=== PATIENT | female | born 1955 | race Caucasian/White ===

== ENCOUNTER → 2021-03-10 11:58 | Outpatient (CLI) | payer MEDICARE, BC, SELFPAY ==
--- NOTE | ~2021-03-10 | DEXA_ITS ---
Bone Density Report Name: Martha Mccurdy Age: 65 Sex: Female Ethnicity: White Date of : 1955 Indication: osteopenia; height loss; postmenopausal Referring Provider: MCKENNA NAGY Study: Bone densitometry was performed. Exam Date: March 10, 2021 Accession number: [id number] Bone Density: Region BMD T-score Z-score Classification AP Spine (L1-L4) 0.949 -0.9 1.1 Normal Femoral Neck (Left) 0.693 -1.4 0.2 Osteopenia Total Hip (Left) 0.803 -1.1 0.2 Osteopenia Femoral Neck (Right) 0.728 -1.1 0.6 Osteopenia Total Hip (Right) 0.819 -1.0 0.4 Normal Total Hip Mean 0.811 -1.1 0.3 Osteopenia World Health Organization criteria for BMD impression classify patients as: Normal (T-score at or above -1.0), Osteopenia (T-score between -1.0 and -2.5), or Osteoporosis (T-score at or below -2.5). 10-year Fracture Risk(1): Major Osteoporotic Fracture 8.8% Hip Fracture 1.0% Reported Risk Factors: [place] (), Neck BMD=0.693, BMI=32.4 (1) FRAX(R) Version 3.08. Fracture probability calculated for an untreated patient. Fracture probability may be lower if the patient has received treatment. Previous Exams: Region Exam Age BMD T-score BMD Change BMD Change Date g/cm2 vs Baseline vs Previous AP Spine(L1-L4) 03/10/2021 65 0.949 -0.9 -0.141 0.020 09/19/2018 63 0.929 -1.1 -0.161 -0.013 08/02/2015 59 0.942 -1.0 -0.148 -0.002 04/05/2013 57 0.945 -0.9 -0.146 0.049* 10/27/2010 55 0.895 -1.4 -0.195 -0.041* 06/01/2008 52 0.936 -1.0 -0.154 -0.154 06/18/2004 48 1.090 0.4 Total Hip(Left) 03/10/2021 65 0.803 -1.1 -0.097 -0.085 09/19/2018 63 0.888 -0.4 -0.012 -0.018 08/02/2015 59 0.906 -0.3 0.006 0.045* 04/05/2013 57 0.861 -0.7 -0.040 0.008 10/27/2010 55 0.853 -0.7 -0.047 0.010 06/01/2008 52 0.843 -0.8 -0.058 -0.058 06/18/2004 48 0.900 -0.3 Total Hip(Right) 03/10/2021 65 0.819 -1.0 -0.075 -0.059 09/19/2018 63 0.878 -0.5 -0.016 -0.009 08/02/2015 59 0.886 -0.5 -0.007 0.039* 04/05/2013 57 0.847 -0.8 -0.046 -0.017 10/27/2010 55 0.865 -0.6 -0.029 0.043* 06/01/2008 52 0.822 -1.0 -0.072 -0.072 06/18/2004 48 0.893 -0.4 *Denotes significance at 95% confide
--- NOTE | ~2021-03-10 | MM_ITS ---
EXAMINATION: MM screening [facility] BI w liv HISTORY: Screening mammogram TECHNIQUE: Craniocaudal and mediolateral oblique 3-D tomosynthesis images were obtained and synthetic 2-D images were generated. CAD analysis was submitted and interpreted. COMPARISON: 11/08/2019, 09/19/2018, 09/15/2017 BREAST PARENCHYMAL COMPOSITION: There are scattered areas of fibroglandular density. FINDINGS: There is no evidence of suspicious mass, calcification, or architectural distortion to sugg est malignancy in either breast. There has been no suspicious interval change. IMPRESSION: 1. No mammographic evidence of malignancy. 2. Recommend routine screening mammography in one year. BI-RADS Category 1: Negative Reviewed, dictated and finalized at location A.
== END ==
PROVIDERS: Visit Provider Obstetrics & Gynecology Gynecology
DX: Z12.31 Encounter for screening mammogram for malignant neoplasm of breast (principal); Z78.0 Asymptomatic menopausal state; M85.852 Other specified disorders of bone density and structure, left thigh; M85.851 Other specified disorders of bone density and structure, right thigh
CPT/HCPCS: 77063; 77067; 77080

== ENCOUNTER → 2022-08-06 15:09 | Outpatient (CLI) | payer MEDICARE, OTHER, SELFPAY ==
--- NOTE | ~2022-08-06 | MM_ITS ---
EXAMINATION: MM screening [facility] BI w liv HISTORY: Screening mammogram TECHNIQUE: Craniocaudal and mediolateral oblique 3-D tomosynthesis images were obtained and synthetic 2-D images were generated. CAD analysis was submitted and interpreted. COMPARISON: 03/10/2021, 11/08/2019, 09/19/2018 BREAST PARENCHYMAL COMPOSITION: There are scattered areas of fibroglandular density. FINDINGS: No suspicious mass, calcification, or architectural distortion are identified in either rodo ast to suggest malignancy. There has been no suspicious interval change. IMPRESSION: 1. No mammographic evidence of malignancy. 2. Recommend routine screening mammography in one year. BI-RADS Category 1: Negative Reviewed, dictated and finalized at location B.
== END ==
PROVIDERS: PCP Internal Medicine; Visit Provider Obstetrics & Gynecology Gynecology
DX: Z12.31 Encounter for screening mammogram for malignant neoplasm of breast (principal)
CPT/HCPCS: 77063; 77067

== ENCOUNTER 2024-01-14 13:10 | Outpatient (CLI) | payer MEDICARE, OTHER, SELFPAY ==
--- NOTE | ~2024-01-14 | DEXA_ITS ---
Bone Density Report Name: HERIBERTO GARCIA Age: 68 Sex: Female Ethnicity: White Date of : 1955 Indication: osteopenia; height loss; prior fracture; postmenopausal Referring Provider: MCKENNA NAGY Study: Bone densitometry was performed. Exam Date: January 14, 2024 Accession number: [id number] Bone Density: Region BMD T-score Z-score Classification AP Spine (L2, L3, L4) 0.958 -1.1 1.1 Osteopenia Femoral Neck (Left) 0.672 -1.6 0.2 Osteopenia Total Hip (Left) 0.820 -1.0 0.5 Normal Femoral Neck (Right) 0.713 -1.2 0.6 Osteopenia Total Hip (Right) 0.800 -1.2 0.4 Osteopenia Total Hip Mean 0.810 -1.1 0.5 Osteopenia World Health Organization criteria for BMD impression classify patients as: Normal (T-score at or above -1.0), Osteopenia (T-score between -1.0 and -2.5), or Osteoporosis (T-score at or below -2.5). 10-year Fracture Risk(1): Major Osteoporotic Fracture 15% Hip Fracture 2.0% Reported Risk Factors: [place] (), Neck BMD=0.672, BMI=34.7, previous fracture (1) FRAX(R) Version 3.08. Fracture probability calculated for an untreated patient. Fracture probability may be lower if the patient has received treatment. Previous Exams: Region Exam Age BMD T-score BMD Change BMD Change Date g/cm2 vs Baseline vs Previous AP Spine(L2, L3, L4) 01/14/2024 68 0.958 -1.1 -0.134 -0.006 03/10/2021 65 0.964 -1.0 -0.129 0.017 09/19/2018 63 0.946 -1.2 -0.146 -0.027 08/02/2015 59 0.974 -1.0 -0.119 0.019 04/05/2013 57 0.955 -1.1 -0.138 0.050* 10/27/2010 55 0.905 -1.6 -0.188 -0.033* 06/01/2008 52 0.938 -1.3 -0.155 -0.155 06/18/2004 48 1.093 0.1 Total Hip(Left) 01/14/2024 68 0.820 -1.0 -0.080 0.017 03/10/2021 65 0.803 -1.1 -0.097 -0.085 09/19/2018 63 0.888 -0.4 -0.012 -0.018 08/02/2015 59 0.906 -0.3 0.006 0.045* 04/05/2013 57 0.861 -0.7 -0.040 0.008 10/27/2010 55 0.853 -0.7 -0.047 0.010 06/01/2008 52 0.843 -0.8 -0.058 -0.058 06/18/2004 48 0.900 -0.3 Total Hip(Right) 01/14/2024 68 0.800 -1.2 -0.094 -0.019 03/10/2021 65 0.819 -1.0 -0.075 -0.059 09/19/2018 63 0.878 -0.5 -0.016 -0.009 08/02/2015 59 0.886 -0.5 -0.007 0.039* 04/05/2013 57 0.847 -0.8 -0.046 -0.017 10/27/2010 55 0.865 -0.6 -0.029
--- NOTE | ~2024-01-14 | MM_ITS ---
EXAMINATION: MM screening [facility] BI w liv HISTORY: Screening mammogram TECHNIQUE: Craniocaudal and mediolateral oblique 3-D tomosynthesis images were obtained and synthetic 2-D images were generated. CAD analysis was submitted and interpreted. COMPARISON: 08/06/2022, 03/10/2021 bilateral screening mammogram examinations BREAST PARENCHYMAL COMPOSITION: There are scattered areas of fibroglandular density. FINDINGS: Biopsy marker on the right; history of prior benign right breast biopsy. There is no eviden ce of suspicious mass, calcification, or architectural distortion to suggest malignancy in either rodo ast. There has been no suspicious interval change. IMPRESSION: 1. No mammographic evidence of malignancy. 2. Recommend routine screening mammography in one year. BI-RADS Category 1: Negative Reviewed, dictated and finalized at location A.
== END 2024-01-14 13:11 ==
PROVIDERS: PCP Obstetrics & Gynecology Gynecology; Visit Provider Obstetrics & Gynecology Gynecology
DX: Z12.31 Encounter for screening mammogram for malignant neoplasm of breast (principal); M85.89 Other specified disorders of bone density and structure, multiple sites; Z78.0 Asymptomatic menopausal state
CPT/HCPCS: 77063; 77067; 77080

== ENCOUNTER 2024-08-23 07:33 | Outpatient (CLI) | payer MEDICARE, OTHER, SELFPAY ==
--- NOTE | 2024-08-23 | EST_ITS ---
Patient Info Name: Martha Mccurdy Age: 69 years : 1955 Gender: Female Ht: 63 in Wt: 193 lbs BSA: 2.01 m2 HR: 66 bpm BP: 133 / 79 mmHg Exam Date: 08/23/2024 8:30 AM Exam Location: Echo Lab Patient Status: Outpatient Admit Date: 08/23/2024 Staff Ordering Physician: Guanaco, Austin BESS Attending Provider: Guanaco, Austin BESS Exercise Technologist: Damaris Berger [facility] Exercise Physician: Matthew Lao DO Exam Type: CA stress marly w NM Study Info A regadenoson stress test was performed. Summary 1. 1. Negative lexiscan stress test for ischemic ST changes by ECG criteria. 2. 2. Stable hemodynamics throughout the test. 3. 3. Nuclear scan to follow and will be reported separately. Please correlate with it. 4. 4. Patient informed of the above results. Protocol: Lexiscan Stress ECG Details Stage: REST Duration (min): 3 min : 39 sec HR (bpm): 66 SBP (mmHg): 133 DBP (mmHg): 79 Stage: REST Duration (min): 7 min : 6 sec HR (bpm): 63 SBP (mmHg): 133 DBP (mmHg): 79 Stage: STAGE 1 Duration (min): 1 min : 0 sec HR (bpm): 81 SBP (mmHg): 150 DBP (mmHg): 80 Stage: RECOVERY Duration (min): 1 min : 0 sec HR (bpm): 97 SBP (mmHg): 150 DBP (mmHg): 80 Stage: RECOVERY Duration (min): 2 min : 0 sec HR (bpm): 101 SBP (mmHg): 150 DBP (mmHg): 80 Stage: RECOVERY Duration (min): 3 min : 0 sec HR (bpm): 108 SBP (mmHg): 150 DBP (mmHg): 80 Stage: RECOVERY Duration (min): 4 min : 0 sec HR (bpm): 103 SBP (mmHg): 150 DBP (mmHg): 80 Stage: RECOVERY Duration (min): 5 min : 0 sec HR (bpm): 123 SBP (mmHg): 150 DBP (mmHg): 80 Stage: RECOVERY Duration (min): 5 min : 19 sec HR (bpm): 111 SBP (mmHg): 150 DBP (mmHg): 80 Rest HR: 63 bpm Peak HR: 133 bpm Rest Sys BP: 133 mmHg Peak Sys BP: 150 mmHg Max Pred HR: 149 bpm % Max Pred HR: 89 % Target HR: 127 bpm Max RPP: 19,950 bpm*mmHg Termination Reason: Completed protocol Cardiac Symptoms: Shortness of breath Total Time: 1 min : 0 sec Rest Caballero BP: 79 mmHg Peak Caballero BP: 80 mmHg Total Dose: 0.4 mg Resting ECG Sinus rhythm. Stress ECG No ST changes. Arrhythmias None. Report Signatures
--- NOTE | ~2024-08-23 | NM_ITS ---
EXAMINATION: NM marly stress w perfusion DATE: 08/23/2024 09:19 INDICATION: Chest pain. TECHNIQUE: Rest images were obtained following intravenous administration of 10.3 mCi Tc99m tetrofosm in (Myoview). The patient was infused intravenously with Lexiscan (regadenoson). Then, 33 mCi Tc99m t etrofosmin (Myoview) was administered intravenously, and stress images were obtained. Data was recons tructed into short axis and horizontal and vertical long axis SPECT images. Gated SPECT images were a lso obtained. COMPARISON: None. FINDINGS: There is increased activity below the diaphragm, which decreases sensitivity and specificit y in the inferior wall. There is no definite reversible or fixed perfusion abnormality to suggest isc hemia or infarction. There is no segmental wall motion abnormality. Left ventricular ejection fract ion measures >70%. IMPRESSION: 1. No definite ischemia or infarct. 2. Normal left ventricular ejection fraction measuring >70%. Reviewed, dictated and finalized at location A.
== END 2024-08-23 07:34 | disposition home or self-care (01) ==
PROVIDERS: PCP Internal Medicine; Visit Provider Internal Medicine
DX: R07.9 Chest pain, unspecified (principal); I10 Essential (primary) hypertension
CPT/HCPCS: 78452; 93017; A9502; J2785

== ENCOUNTER 2025-09-05 12:32 | Outpatient (CLI) | payer MEDICARE, OTHER, SELFPAY ==
--- NOTE | 2025-09-05 12:30 | ECG_ITS ---
Test Date: 2025-09-05 12:59:10 Measurements Intervals [place] Rate: 75 P: 35 NM: 149 QRS: -10 QRSD: 94 T: 29 QT: 394 QTc: 440 Interpretive Statements SINUS RHYTHM NONSPECIFIC ST AND T-WAVE ABNORMALITIES ABNORMAL ECG No previous ECG available for comparison Electronically Signed On 09-05-2025 14:43:12 MECHANIC DRIVER by Zach Martinez M.D.
--- OUTSIDE RECORDS SUMMARY | 2025-09-06 12:30 | XMS_ITS | Clinical Summary ---
Author Organization [address] Address [address] [place] [id number] Care Team Providers Care Baseball Player Name Role Phone Austin Blanc MD Primary Care Provider [phone] Allergies No known active allergies Medications atorvastatin (LIPITOR) 10 mg tablet Take 1 tablet (10 mg total) by mouth daily 01/15/2020 Active escitalopram (LEXAPRO) 10 mg tablet Take 1 tablet (10 mg total) by mouth daily 01/15/2020 Active omeprazole (PriLOSEC) 20 mg capsule 10/30/2024 Active solifenacin (VESIcare) 10 mg tablet Take 1 tablet (10 mg total) by mouth daily 08/23/2019 Active telmisartan (MICARDIS) 40 mg tablet Take 1 tablet (40 mg total) by mouth daily 08/23/2019 Active Active Problems Problem Noted Date Diagnosed Date Hyperlipidemia 05/01/2013 Overview (02/05/2017): Hyperlipemia Surgical History Surgery Date Site/Laterality Comments ROTATOR CUFF REPAIR 2012 Rotator cuff repair Medical History Medical History Date Comments Hyperlipidemia Hyperlipidemia Inflammatory bowel disease Infla mmatory bowel disease Hypertension Hypertension Social History Tobacco Use Types Packs/Day Years Used Date Smoking Tobacco: Never Assessed Alcohol Use Standard Drinks/Week Comments Yes 0 (1 standard drink = 0.6 oz pur e alcohol) Comments Unknown Sex and Gender Information Value Date Recorded Sex Assigned at Not on file 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 Gender Identity Not on file Sexual Orientation Not on file Last Filed Vital Signs Vital Sign Reading Time Taken Comments Blood Pressure 124/82 01/31/2025 9:07 AM CDT Pulse 80 01/31/2025 9:07 AM CDT Temperature 36.4 C (97.6 F) 01/31/2025 9:07 AM CDT Respiratory Rate 20 01/31/2025 9:07 AM CDT Oxygen Saturation 98% 01/31/2025 9:07 AM CDT Inhaled Oxygen Concentration - - Weight 88.5 kg (195 lb) 01/31/2025 9:07 AM CDT Height 160 cm (5' 3) 05/01/2013 11:01 AM CDT Body Mass Index - - Plan of Treatment Health Maintenance Due Date Last Done Comments Breast Cancer Screening-Mammogram 1955 Colon Cancer Screening-Colonoscopy 1955 Depression Screening 1955 Fall Risk Assessment 1955 Hepatitis C Screening 1955 Osteoporosis Screening-Bone Density Scan 1955 Hepatitis B Screening 1971 Well Visit 65+ 2018 Zoster Vaccine (2 of 2) 03/04/2025 01/07/2025 Covid-19 Vaccine (2024-2 6 season) 2025 07/21/2024, 08/17/2023, 09/28/2022, Additional history exists Influenza Vaccine (#1) 2025 , 08/17/2023, 08/03/2022, Additional history exists DTaP/Tdap/Td Vaccine (2 - Td or Tdap) 01/30/2035 01/30/2025 Pneumococcal vaccine 65+ Completed 10/05/2024 [place] [address] [place] [place] [address] Care Teams Baseball Player Relationship Specialty Start Date End Date Austin Blanc MD PCP - General Internal Medicine 01/31/25
--- OUTSIDE RECORDS SUMMARY | 2025-09-06 12:30 | XMS_ITS | Data Portability ---
Author Organization [facility] Nikolas Melgar Address [address] [place] [address] Care Team Providers Care Speech And Language Specialist Name Role Phone GISSELLE BLANC Primary Care Provider Assessment Encounter Date Assessment Date Assessment LastModified by Organization Details LastModified Time 02/02/2024 02/02/2024 Blood pressure is well-controlled we will obtain blood work continue other medication anxiety generic Lexapro rhinitis montelukast history of urinary incontinence she is on anything for that hypertension telmisartan old records so they can be reviewed for immunizations and screenings healthy lifestyle choices discussed follow-up in 4 to 6 months and scopolamine patch for her cruise Not available 03/02/2024 08:13:23 08/09/2024 08/09/2024 EKG shows a normal sinus rhythm with no acute changes. Plan low-fat diet Lexiscan stress test. Blood work. Follow up 4 months. Says she is up-to-date on mammograms and colon cancer screenings. We will get copies of those reports. Diagnosis in the assessment and plan have been discussed as well as their management [email or web address] Not available 08/12/2024 11:09:32 09/20/2024 09/20/2024 we will continue current therapy testing and blood work reviewed follow up 4 months she says she is up-to-date on her mammogram and colonoscopy we are trying to get the report Not available 09/20/2024 21:29:18 01/30/2025 01/30/2025 Impacted cerumen left ear we do not have the ability to remove it she can see ENT or go to urgent care [email or web address] Not available 02/10/2025 22:21:12 04/18/2025 04/18/2025 We will continue current therapy blood work has been ordered Cipro she is going on a extended trip through [place] and she would like to have something in case she gets a urinary tract infection and we did prescribe some Cipro for her to have on hand healthy lifestyle care instructions see me back 6 months Not available 04/18/2025 15:13:55 Plan of Treatment Reminders Order Date Submit Date Provider Last Modified By Organization Details Last Modified Time Details Appointments ANY 15 2024 01:45P Jovanna Blanc MD Not available Not available Not available ANY 15 2024 01:00P oJvanna Blanc MD Not available Not available Not available Lab lipid panel, serum 2024 025 [facility], [address], [place], [address], 04/19/2025 07:14:36 CMP, serum or plasma 2024 025 [facility], [address], [place], [address], 04/19/2025 07:14:37 CBC w/ auto diff 2024 025 [facility], [address], [place], [address], 04/19/2025 07:14:38 lipid panel, serum 2023 024 [facility], [address], [place], [address], 08/10/2024 11:17:33 CMP, serum or plasma 2023 024 [facility], [address], [place], [address], 08/10/2024 11:17:34 CBC w/ auto diff 2023 024 [facility], [address], [place], [address], 08/10/2024 11:17:35 CMP, serum or plasma 2023 024 [facility], [address], [place], [address], 02/10/2024 10:13:27 CBC w/ auto diff 2023 024 [facility], [address], [place], [address], 02/10/2024 10:13:28 lipid panel, serum 2023 [facility], [address], [place], [address], 02/10/2024 10:13:27 Referral None recorded. Procedures lexiscan cardiolit e stress test (PROC) 2023 024 [facility] [address], [place], [address], 08/23/2024 10:33:00 Surgeries None recorded. Imaging electroca rdiogram 2023 [id number] In-Office Order, Internal Use Only DO Not Attach Compendium DO Not Attach Compendium, Do Not Delete/merge, [id number] 08/09/2024 17:29:31 Medication Orders Cipro 500 mg tablet 2024 025 [facility][id number], [address], [place], [place], [id number], 05/02/2025 05:02:26 Singulair 10 mg tablet 2023 024 [email or web address] [facility] #85649, [address], [place], [place], [id number], 02/02/2024 15:24:32 scopolami ne 1 mg over 3 days transderm al patch 202303 024 [email or web address] [facility] #[id number], [address], [place], [place], [id number], 02/02/2024 15:24:32 Patient TargetsNo targets recorded. Patient Instructions Encounter Date Encounter Id Patient Instructions Last Modified By Organization Details Last Modified Time 01/30/2025 [id number] A healthy lifestyle: care instructions Not available 01/30/2025 12:53:14 04/18/2025 [id number] A healthy lifestyle: care instructions [email or web address] Not available 04/18/2025 14:17:55 Reason for Referral None Reported. Results Created Date Observation Date Name Description Value Unit Range Abnormal Flag Note LastModifiedBy Organization Detail LastModifiedTime 02/09/2002/10/2024 CMP14 glucose 121 mg/dL 70-99 above high normal Not Available [facility] ([facility]) [address] [place], [address], 02/10/2024 10:13:27 02/09/20 24 02/10/2024 CMP14 BUN 19 mg/dL 8-27 Not Available [facility] ([facility]) [address] [place], [address], 02/10/2024 10:13:27 02/09/20 24 02/10/2024 CMP14 creatinine 0.72 mg/dL 0.57-1 .00 Not Available [facility] ([facility]) [address] [place], [address], 02/10/2024 10:13:27 02/09/20 24 02/10/2024 CMP14 eGFR 90 mL/mi n/1.7 3 >59 Not Available [facility] ([facility]) [address] [place], [address], 02/10/2024 10:13:27 02/09/20 24 02/10/2024 CMP14 BUN/creatini ne ratio 26 12-28 Not Available [facility] ([facility]) [address] [facility] [place], [address], 02/10/2024 10:13:27 02/09/20 24 02/10/2024 CMP14 sodium 144 mmol/ L 134-14 4 Not Available [facility] ([facility]) [address] [place], [address], 02/10/2024 10:13:27 02/09/20 24 02/10/2024 CMP14 potassium 4.8 mmol/ L 3.5-5. 2 Not Available [facility] ([facility]) [address] [facility] [place], [address], 02/10/2024 10:13:27 02/09/20 24 02/10/2024 CMP14 chloride 109 mmol/ L 96-106 above high normal Not Available [facility] ([facility]) [address] [facility], [address], 02/10/2024 10:13:27 02/09/20 24 02/10/2024 CMP14 carbon dioxide, total 23 mmol/ L 20-29 Not Available [facility] ([facility]) [address] [place], [address], 02/10/2024 10:13:27 02/09/20 24 02/10/2024 CMP14 calcium 10.1 mg/dL 8.7-10 .3 Not Available [facility] ([facility]) [address] [place] [place], [address], 02/10/2024 10:13:27 02/09/20 24 02/10/2024 CMP14 protein, total 6.5 g/dL 6.0-8. 5 Not Available [facility] ([facility]) [address] [place], [address], 02/10/2024 10:13:27 02/09/20 24 02/10/2024 CMP14 albumin 4.2 g/dL 3.9-4. 9 Not Available [facility] ([facility]) [address] [place], [address], 02/10/2024 10:13:27 02/09/20 24 02/10/2024 CMP14 globulin, total 2.3 g/dL 1.5-4. 5 Not Available [facility] ([facility]) [address] [place], [address], 02/10/2024 10:13:27 02/09/20 24 02/10/2024 CMP14 A/G ratio 1.8 1.2-2. 2 Not Available [facility] ([facility]) [address] [facility] [place], [address], 02/10/2024 10:13:27 02/09/20 24 02/10/2024 CMP14 bilirubin, total 0.5 mg/dL 0.0-1. 2 Not Available [facility] ([facility]) [address] [place], [address], 02/10/2024 10:13:27 02/09/20 24 02/10/2024 CMP14 alkaline phosphatase 82 IU/L 44-121 Not Available [facility] ([facility]) [address] [place], [address], 02/10/2024 10:13:27 02/09/20 24 02/10/2024 CMP14 AST (SGOT) 22 IU/L 0-40 Not Avail able [facility] ([facility]) [address] [place], [address], 02/10/2024 10:13:27 02/09/20 24 02/10/2024 CMP14 ALT (SGPT) 27 IU/L 0-32 Not Avail able [facility] ([facility]) [address] [place], [address], 02/10/2024 10:13:27 02/09/20 24 02/10/2024 LIPID PANEL cholesterol, total 193 mg/dL 100-19 9 Not Available [facility] ([facility]) [address] [facility], [place], [address], 02/10/2024 10:13:27 02/09/20 24 02/10/2024 LIPID PANEL triglyceride s 113 mg/dL 0-149 Not Available [facility] ([facility]) [address] [place], [address], 02/10/2024 10:13:27 02/09/20 24 02/10/2024 LIPID PANEL HDL cholesterol 61 mg/dL >39 Not Available [facility] ([facility]) [address] [place], [address], 02/10/2024 10:13:27 02/09/20 24 02/10/2024 LIPID PANEL VLDL cholesterol ramila 20 mg/dL 5-40 Not Available [facility] ([facility]) [address] [place], [address], 02/10/2024 10:13:27 02/09/20 24 02/10/2024 LIPID PANEL LDL chol calc ([facility]) 112 mg/dL 0-99 above high normal Not Available [facility] ([facility]) [address] [place], [address], 02/10/2024 10:13:27 02/09/20 24 02/10/2024 CBC WITH DIFFE RENTI AL/PL ATELE T WBC 3.1 x10e3 /uL 3.4-10 .8 below low normal Not Available [facility] ([facility]) [address] [place], [address], 02/10/2024 10:13:28 02/09/20 24 02/10/2024 CBC WITH DIFFE RENTI AL/PL ATELE T RBC 4.29 x10e6 /uL 3.77-5 .28 Not Available [facility] ([facility]) [address] [place], [address], 02/10/2024 10:13:28 02/09/20 24 02/10/2024 CBC WITH DIFFE RENTI AL/PL ATELE T hemoglobin 14.3 g/dL 11.1-1 5.9 Not Available [facility] ([facility]) [address] [facility], [place], [address], 02/10/2024 10:13:28 02/09/20 24 02/10/2024 CBC WITH DIFFE RENTI AL/PL ATELE T hematocrit 42.5 % 34.0-4 6.6 Not Available [facility] ([facility]) [address] [facility], [place], [address], 02/10/2024 10:13:28 02/09/20 24 02/10/2024 CBC WITH DIFFE RENTI AL/PL ATELE T MCV 99 fL 79-97 above high normal Not Available [facility] ([facility]) [address] [place], [address], 02/10/2024 10:13:28 02/09/20 24 02/10/2024 CBC WITH DIFFE RENTI AL/PL ATELE T MCH 33.3 pg 26.6-3 3.0 above high normal Not Available [facility] ([facility]) [address] [place], [address], 02/10/2024 10:13:28 02/09/20 24 02/10/2024 CBC WITH DIFFE RENTI AL/PL ATELE T MCHC 33.6 g/dL 31.5-3 5.7 Not Available [facility] ([facility]) [address] [place], [address], 02/10/2024 10:13:28 02/09/20 24 02/10/2024 CBC WITH DIFFE RENTI AL/PL ATELE T RDW 12.6 % 11.7-1 5.4 Not Available [facility] ([facility]) [address] [facility], [place], [address], 02/10/2024 10:13:28 02/09/20 24 02/10/2024 CBC WITH DIFFE RENTI AL/PL ATELE T platelets 213 x10e3 /uL 150-45 0 Not Available [facility] ([facility]) [address] [facility], [place], [address], 02/10/2024 10:13:28 02/09/20 24 02/10/2024 CBC WITH DIFFE RENTI AL/PL ATELE T neutrophils 51 % notest ab. Not Available [facility] ([facility]) [address] [facility], [place], [address], 02/10/2024 10:13:28 02/09/20 24 02/10/2024 CBC WITH DIFFE RENTI AL/PL ATELE T lymphs 35 % notest ab. Not Available [facility] ([facility]) [address] [facility], [place], [address], 02/10/2024 10:13:28 02/09/20 24 02/10/2024 CBC WITH DIFFE RENTI AL/PL ATELE T monocytes 11 % notest ab. Not Available [facility] ([facility]) [address] [facility], [place], [address], 02/10/2024 10:13:28 02/09/20 24 02/10/2024 CBC WITH DIFFE RENTI AL/PL ATELE T eos 2 % notest ab. Not Available [facility] ([facility]) [address] [facility], [place], [address], 02/10/2024 10:13:28 02/09/20 24 02/10/2024 CBC WITH DIFFE RENTI AL/PL ATELE T basos 1 % notest ab. Not Available [facility] ([facility]) [address] [facility], [place], [address], 02/10/2024 10:13:28 02/09/20 24 02/10/2024 CBC WITH DIFFE RENTI AL/PL ATELE T neutrophils (absolute) 1.6 x10e3 /uL 1.4-7. 0 Not Available [facility] ([facility]) [address] [facility], [place], [address], 02/10/2024 10:13:28 02/09/20 24 02/10/2024 CBC WITH DIFFE RENTI AL/PL ATELE T lymphs (absolute) 1.1 x10e3 /uL 0.7-3. 1 Not Available [facility] ([facility]) [address] [place], [address], 02/10/2024 10:13:28 02/09/20 24 02/10/2024 CBC WITH DIFFE RENTI AL/PL ATELE T monocytes(ab solute) 0.3 x10e3 /uL 0.1-0. 9 Not Available [facility] ([facility]) [address] [place], [address], 02/10/2024 10:13:28 02/09/20 24 02/10/2024 CBC WITH DIFFE RENTI AL/PL ATELE T eos (absolute) 0.1 x10e3 /uL 0.0-0. 4 Not Available [facility] ([facility]) [address] [place], [address], 02/10/2024 10:13:28 02/09/20 24 02/10/2024 CBC WITH DIFFE RENTI AL/PL ATELE T baso (absolute) 0.0 x10e3 /uL 0.0-0. 2 Not Available [facility] ([facility]) [address] [place], [address], 02/10/2024 10:13:28 02/09/20 24 02/10/2024 CBC WITH DIFFE RENTI AL/PL ATELE T immature granulocytes 0 % notest ab. Not Available [facility] ([facility]) [address] [facility], [place], [address], 02/10/2024 10:13:28 02/09/20 24 02/10/2024 CBC WITH DIFFE RENTI AL/PL ATELE T immature grans (abs) 0.0 x10e3 /uL 0.0-0. 1 Not Available [facility] ([facility]) [address] [facility], [place], [address], 02/10/2024 10:13:28 02/09/20 24 02/10/2024 HB A1C hemoglobin A1C 5.6 % 4.8-5. 6 Predi abete s: 5.7 - 6.4 Diabe ashwini: >6.4 Glyce reji contr ol for adult s with diabe ashwini: <7.0 Not Available [facility] ([facility]) [address] [facility], [place], [address], 02/10/2024 10:13:29 08/09/20 24 08/10/2024 LIPID PANEL cholesterol, total 211 mg/dL 100-19 9 above high normal Not Available [facility] ([facility]) [address] [facility], [place], [address], 08/10/2024 11:17:33 08/09/20 24 08/10/2024 LIPID PANEL triglyceride s 123 mg/dL 0-149 Not Available [facility] ([facility]) [address] [place], [address], 08/10/2024 11:17:33 08/09/20 24 08/10/2024 LIPID PANEL HDL cholesterol 65 mg/dL >39 Not Available [facility] ([facility]) [address] [facility], [place], [address], 08/10/2024 11:17:33 08/09/20 24 08/10/2024 LIPID PANEL VLDL cholesterol ramila 22 mg/dL 5-40 Not Available [facility] ([facility]) [address] [facility], [place], [address], 08/10/2024 11:17:33 08/09/20 24 08/10/2024 LIPID PANEL LDL chol calc ([facility]) 124 mg/dL 0-99 above high normal Not Available [facility] ([facility]) [address] [facility], [place], [address], 08/10/2024 11:17:33 08/09/20 24 08/10/2024 COMP. METAB OLIC PANEL (14) glucose 100 mg/dL 70-99 above high normal Not Available [facility] ([facility]) [address] [facility], [place], [address], 08/10/2024 11:17:34 08/09/20 24 08/10/2024 COMP. METAB OLIC PANEL (14) BUN 22 mg/dL 8-27 Not Available [facility] ([facility]) [address] [place], [address], 08/10/2024 11:17:34 08/09/20 24 08/10/2024 COMP. METAB OLIC PANEL (14) creatinine 0.79 mg/dL 0.57-1 .00 Not Available [facility] ([facility]) [address] [facility], [place], [address], 08/10/2024 11:17:34 08/09/20 24 08/10/2024 COMP. METAB OLIC PANEL (14) eGFR 80 mL/mi n/1.7 3 >59 Not Available [facility] ([facility]) [address] [place], [address], 08/10/2024 11:17:34 08/09/20 24 08/10/2024 COMP. METAB OLIC PANEL (14) BUN/creatini ne ratio 28 12-28 Not Available [facility] ([facility]) [address] [place], [address], 08/10/2024 11:17:34 08/09/20 24 08/10/2024 COMP. METAB OLIC PANEL (14) sodium 142 mmol/ L 134-14 4 Not Available [facility] ([facility]) [address] [place], [address], 08/10/2024 11:17:34 08/09/20 24 08/10/2024 COMP. METAB OLIC PANEL (14) potassium 4.3 mmol/ L 3.5-5. 2 Speci men recei patsy hemol yzed. Value may be incre ased by hemol ysis. Clini ramila corre latio n indic ated. Not Available [facility] ([facility]) [address] [facility], [place], [address], 08/10/2024 11:17:34 08/09/20 24 08/10/2024 COMP. METAB OLIC PANEL (14) chloride 106 mmol/ L 96-106 Not Available [facility] ([facility]) [address] [facility], [place], [address], 08/10/2024 11:17:34 08/09/20 24 08/10/2024 COMP. METAB OLIC PANEL (14) carbon dioxide, total 21 mmol/ L 20-29 Not Available [facility] ([facility]) [address] [facility], [place], [address], 08/10/2024 11:17:34 08/09/20 24 08/10/2024 COMP. METAB OLIC PANEL (14) calcium 10.3 mg/dL 8.7-10 .3 Not Available [facility] ([facility]) [address] [place], [address], 08/10/2024 11:17:34 08/09/20 24 08/10/2024 COMP. METAB OLIC PANEL (14) protein, total 6.8 g/dL 6.0-8. 5 Not Available [facility] ([facility]) [address] [place], [address], 08/10/2024 11:17:34 08/09/20 24 08/10/2024 COMP. METAB OLIC PANEL (14) albumin 4.3 g/dL 3.9-4. 9 Not Available [facility] ([facility]) [address] [facility], [place], [address], 08/10/2024 11:17:34 08/09/20 24 08/10/2024 COMP. METAB OLIC PANEL (14) globulin, total 2.5 g/dL 1.5-4. 5 Not Available [facility] ([facility]) [address] [facility], [place], [address], 08/10/2024 11:17:34 08/09/20 24 08/10/2024 COMP. METAB OLIC PANEL (14) bilirubin, total 0.6 mg/dL 0.0-1. 2 Not Available [facility] ([facility]) [address] [facility], [place], [address], 08/10/2024 11:17:34 08/09/20 24 08/10/2024 COMP. METAB OLIC PANEL (14) alkaline phosphatase 92 IU/L 44-121 Not Available [facility] ([facility]) [address] [facility], [place], [address], 08/10/2024 11:17:34 08/09/20 24 08/10/2024 COMP. METAB OLIC PANEL (14) AST (SGOT) 32 IU/L 0-40 Not Available [facility] ([facility]) [address] [place], [address], 08/10/2024 11:17:34 08/09/20 24 08/10/2024 COMP. METAB OLIC PANEL (14) ALT (SGPT) 31 IU/L 0-32 Not Available [facility] ([facility]) [address] [place], [address], 08/10/2024 11:17:34 10/0908/10/2024 CBC WITH DIFFE RENTI AL/PL ATELE T WBC 4.9 x10e3 /uL 3.4-10 .8 Not Available [facility] ([facility]) [address] [facility], [place], [address], 08/10/2024 11:17:35 08/09/20 24 08/10/2024 CBC WITH DIFFE RENTI AL/PL ATELE T RBC 4.35 x10e6 /uL 3.77-5 .28 Not Available [facility] ([facility]) [address] [facility], [place], [address], 08/10/2024 11:17:35 08/09/2008/10/2024 CBC WITH DIFFE RENTI AL/PL ATELE T hemoglobin 14.3 g/dL 11.1-1 5.9 Not Available [facility] ([facility]) [address] [facility], [place], [address], 08/10/2024 11:17:35 08/09/20 24 08/10/2024 CBC WITH DIFFE RENTI AL/PL ATELE T hematocrit 42.9 % 34.0-4 6.6 Not Available [facility] ([facility]) [address] [facility], [place], [address], 08/10/2024 11:17:35 08/09/20 24 08/10/2024 CBC WITH DIFFE RENTI AL/PL ATELE T MCV 99 fL 79-97 above high normal Not Available [facility] ([facility]) [address] [facility], [place], [address], 08/10/2024 11:17:35 08/09/20 24 08/10/2024 CBC WITH DIFFE RENTI AL/PL ATELE T MCH 32.9 pg 26.6-3 3.0 Not Available [facility] ([facility]) [address] [facility], [place], [address], 08/10/2024 11:17:35 08/09/20 24 08/10/2024 CBC WITH DIFFE RENTI AL/PL ATELE T MCHC 33.3 g/dL 31.5-3 5.7 Not Available [facility] ([facility]) [address] [facility], [place], [address], 08/10/2024 11:17:35 08/09/20 24 08/10/2024 CBC WITH DIFFE RENTI AL/PL ATELE T RDW 12.3 % 11.7-1 5.4 Not Available [facility] ([facility]) [address] [facility], [place], [address], 08/10/2024 11:17:35 08/09/2008/10/2024 CBC WITH DIFFE RENTI AL/PL ATELE T platelets 228 x10e3 /uL 150-45 0 Not Available [facility] ([facility]) [address] [facility], [place], [address], 08/10/2024 11:17:35 08/09/20 24 08/10/2024 CBC WITH DIFFE RENTI AL/PL ATELE T neutrophils 52 % notest ab. Not Available [facility] ([facility]) [address] [facility], [place], [address], 08/10/2024 11:17:35 08/09/20 24 08/10/2024 CBC WITH DIFFE RENTI AL/PL ATELE T lymphs 35 % notest ab. Not Available [facility] ([facility]) [address] [facility], [place], [address], 08/10/2024 11:17:35 08/09/20 24 08/10/2024 CBC WITH DIFFE RENTI AL/PL ATELE T monocytes 10 % notest ab. Not Available [facility] ([facility]) [address] [facility], [place], [address], 08/10/2024 11:17:35 08/09/20 24 08/10/2024 CBC WITH DIFFE RENTI AL/PL ATELE T eos 2 % notest ab. Not Available [facility] ([facility]) [address] [facility], [place], [address], 08/10/2024 11:17:35 08/09/20 24 08/10/2024 CBC WITH DIFFE RENTI AL/PL ATELE T basos 1 % notest ab. Not Available [facility] ([facility]) [address] [facility], [place], [address], 08/10/2024 11:17:35 08/09/20 24 08/10/2024 CBC WITH DIFFE RENTI AL/PL ATELE T neutrophils (absolute) 2.6 x10e3 /uL 1.4-7. 0 Not Available [facility] ([facility]) [address] [facility], [place], [address], 08/10/2024 11:17:35 08/09/20 24 08/10/2024 CBC WITH DIFFE RENTI AL/PL ATELE T lymphs (absolute) 1.7 x10e3 /uL 0.7-3. 1 Not Available [facility] ([facility]) [address] [facility], [place], [address], 08/10/2024 11:17:35 08/09/20 24 08/10/2024 CBC WITH DIFFE RENTI AL/PL ATELE T monocytes(ab solute) 0.5 x10e3 /uL 0.1-0. 9 Not Available [facility] ([facility]) [address] [facility], [place], [address], 08/10/2024 11:17:35 08/09/20 24 08/10/2024 CBC WITH DIFFE RENTI AL/PL ATELE T eos (absolute) 0.1 x10e3 /uL 0.0-0. 4 Not Available [facility] ([facility]) [address] [facility], [place], [address], 08/10/2024 11:17:35 08/09/20 24 08/10/2024 CBC WITH DIFFE RENTI AL/PL ATELE T baso (absolute) 0.0 x10e3 /uL 0.0-0. 2 Not Available [facility] ([facility]) [address] [facility], [place], [address], 08/10/2024 11:17:35 08/09/20 24 08/10/2024 CBC WITH DIFFE RENTI AL/PL ATELE T immature granulocytes 0 % notest ab. Not Available [facility] ([facility]) [address] [facility], [place], [address], 08/10/2024 11:17:35 08/09/20 24 08/10/2024 CBC WITH DIFFE RENTI AL/PL ATELE T immature grans (abs) 0.0 x10e3 /uL 0.0-0. 1 Not Available [facility] ([facility]) [address] [place], [address], 08/10/2024 11:17:35 04/18/20 25 04/19/2025 LIPID PANEL cholesterol, total 184 mg/dL 100-19 9 Not Available [facility] ([facility]) [address] [place], [address], 04/19/2025 07:14:36 04/18/20 25 04/19/2025 LIPID PANEL triglyceride s 99 mg/dL 0-149 Not Available [facility] ([facility]) [address] [place], [address], 04/19/2025 07:14:36 04/18/20 25 04/19/2025 LIPID PANEL HDL cholesterol 59 mg/dL >39 Not Available [facility] ([facility]) [address] [place], [address], 04/19/2025 07:14:36 04/18/20 25 04/19/2025 LIPID PANEL VLDL cholesterol ramila 18 mg/dL 5-40 Not Available [facility] ([facility]) [address] [facility] [place], [address], 04/19/2025 07:14:36 04/18/20 25 04/19/2025 LIPID PANEL LDL chol calc ([facility]) 107 mg/dL 0-99 above high normal Not Available [facility] ([facility]) [address] [facility], [place], [address], 04/19/2025 07:14:36 04/18/20 25 04/19/2025 COMP. METAB OLIC PANEL (14) glucose 110 mg/dL 70-99 above high normal Not Available [facility] ([facility]) [address] [place], [address], 04/19/2025 07:14:37 04/18/20 25 04/19/2025 COMP. METAB OLIC PANEL (14) BUN 15 mg/dL 8-27 Not Available [facility] ([facility]) [address] [place], [address], 04/19/2025 07:14:37 04/18/20 25 04/19/2025 COMP. METAB OLIC PANEL (14) creatinine 0.75 mg/dL 0.57-1 .00 Not Available [facility] ([facility]) [address] [place], [address], 04/19/2025 07:14:37 04/18/20 25 04/19/2025 COMP. METAB OLIC PANEL (14) eGFR 85 mL/mi n/1.7 3 >59 Not Available [facility] ([facility]) [address] [place], [address], 04/19/2025 07:14:37 04/18/20 25 04/19/2025 COMP. METAB OLIC PANEL (14) BUN/creatini ne ratio 20 12-28 Not Available [facility] ([facility]) [address] [place], [address], 04/19/2025 07:14:37 04/18/20 25 04/19/2025 COMP. METAB OLIC PANEL (14) sodium 142 mmol/ L 134-14 4 Not Available [facility] ([facility]) [address] [place], [address], 04/19/2025 07:14:37 04/18/20 25 04/19/2025 COMP. METAB OLIC PANEL (14) potassium 4.5 mmol/ L 3.5-5. 2 Not Available [facility] ([facility]) [address] [place], [address], 04/19/2025 07:14:37 04/18/20 25 04/19/2025 COMP. METAB OLIC PANEL (14) chloride 108 mmol/ L 96-106 above high normal Not Available [facility] ([facility]) [address] [facility], [place], [address], 04/19/2025 07:14:37 04/18/20 25 04/19/2025 COMP. METAB OLIC PANEL (14) carbon dioxide, total 20 mmol/ L 20-29 Not Available [facility] ([facility]) [address] [place], [address], 04/19/2025 07:14:37 04/18/20 25 04/19/2025 COMP. METAB OLIC PANEL (14) calcium 10.1 mg/dL 8.7-10 .3 Not Available [facility] ([facility]) [address] [place], [address], 04/19/2025 07:14:37 04/18/20 25 04/19/2025 COMP. METAB OLIC PANEL (14) protein, total 6.9 g/dL 6.0-8. 5 Not Available [facility] ([facility]) [address] [place], [address], 04/19/2025 07:14:37 04/18/20 25 04/19/2025 COMP. METAB OLIC PANEL (14) albumin 4.3 g/dL 3.8-4. 8 Not Available [facility] ([facility]) [address] [facility], [place], [address], 04/19/2025 07:14:37 04/18/20 25 04/19/2025 COMP. METAB OLIC PANEL (14) globulin, total 2.6 g/dL 1.5-4. 5 Not Available [facility] ([facility]) [address] [facility], [place], [address], 04/19/2025 07:14:37 04/18/20 25 04/19/2025 COMP. METAB OLIC PANEL (14) bilirubin, total 0.6 mg/dL 0.0-1. 2 Not Available [facility] ([facility]) [address] [facility], [place], [address], 04/19/2025 07:14:37 04/18/20 25 04/19/2025 COMP. METAB OLIC PANEL (14) alkaline phosphatase 106 IU/L 44-121 Not Available [facility] ([facility]) [address] [facility], [place], [address], 04/19/2025 07:14:37 04/18/20 25 04/19/2025 COMP. METAB OLIC PANEL (14) AST (SGOT) 27 IU/L 0-40 Not Available [facility] ([facility]) [address] [facility], [place], [address], 04/19/2025 07:14:37 04/18/20 25 04/19/2025 COMP. METAB OLIC PANEL (14) ALT (SGPT) 28 IU/L 0-32 Not Available [facility] ([facility]) [address] [place], [address], 04/19/2025 07:14:37 04/18/20 25 04/19/2025 CBC WITH DIFFE RENTI AL/PL ATELE T WBC 4.0 x10e3 /uL 3.4-10 .8 Not Available [facility] ([facility]) [address] [facility], [place], [address], 04/19/2025 07:14:38 04/18/20 25 04/19/2025 CBC WITH DIFFE RENTI AL/PL ATELE T RBC 4.49 x10e6 /uL 3.77-5 .28 Not Available [facility] ([facility]) [address] [facility], [place], [address], 04/19/2025 07:14:38 04/18/20 25 04/19/2025 CBC WITH DIFFE RENTI AL/PL ATELE T hemoglobin 14.5 g/dL 11.1-1 5.9 Not Available [facility] ([facility]) [address] [facility], [place], [address], 04/19/2025 07:14:38 04/18/20 25 04/19/2025 CBC WITH DIFFE RENTI AL/PL ATELE T hematocrit 44.3 % 34.0-4 6.6 Not Available [facility] ([facility]) [address] [place], [address], 04/19/2025 07:14:38 04/18/20 25 04/19/2025 CBC WITH DIFFE RENTI AL/PL ATELE T MCV 99 fL 79-97 above high normal Not Available [facility] ([facility]) [address] [place], [address], 04/19/2025 07:14:38 04/18/20 25 04/19/2025 CBC WITH DIFFE RENTI AL/PL ATELE T MCH 32.3 pg 26.6-3 3.0 Not Available [facility] ([facility]) [address] [place], [address], 04/19/2025 07:14:38 04/18/20 25 04/19/2025 CBC WITH DIFFE RENTI AL/PL ATELE T MCHC 32.7 g/dL 31.5-3 5.7 Not Available [facility] ([facility]) [address] [facility], [place], [address], 04/19/2025 07:14:38 04/18/20 25 04/19/2025 CBC WITH DIFFE RENTI AL/PL ATELE T RDW 13.1 % 11.7-1 5.4 Not Available [facility] ([facility]) [address] [facility], [place], [address], 04/19/2025 07:14:38 04/18/20 25 04/19/2025 CBC WITH DIFFE RENTI AL/PL ATELE T platelets 220 x10e3 /uL 150-45 0 Not Available [facility] ([facility]) [address] [facility], [place], [address], 04/19/2025 07:14:38 04/18/20 25 04/19/2025 CBC WITH DIFFE RENTI AL/PL ATELE T neutrophils 50 % notest ab. Not Available [facility] ([facility]) [address] [facility], [place], [address], 04/19/2025 07:14:38 04/18/20 25 04/19/2025 CBC WITH DIFFE RENTI AL/PL ATELE T lymphs 37 % notest ab. Not Available [facility] ([facility]) [address] [facility], [place], [address], 04/19/2025 07:14:38 04/18/20 25 04/19/2025 CBC WITH DIFFE RENTI AL/PL ATELE T monocytes 10 % notest ab. Not Available [facility] ([facility]) [address] [facility], [place], [address], 04/19/2025 07:14:38 04/18/20 25 04/19/2025 CBC WITH DIFFE RENTI AL/PL ATELE T eos 2 % notest ab. Not Available [facility] ([facility]) [address] [facility], [place], [address], 04/19/2025 07:14:38 04/18/20 25 04/19/2025 CBC WITH DIFFE RENTI AL/PL ATELE T basos 1 % notest ab. Not Available [facility] ([facility]) [address] [facility], [place], [address], 04/19/2025 07:14:38 04/18/20 25 04/19/2025 CBC WITH DIFFE RENTI AL/PL ATELE T neutrophils (absolute) 2.0 x10e3 /uL 1.4-7. 0 Not Available [facility] ([facility]) [address] [facility], [place], [address], 04/19/2025 07:14:38 04/18/20 25 04/19/2025 CBC WITH DIFFE RENTI AL/PL ATELE T lymphs (absolute) 1.5 x10e3 /uL 0.7-3. 1 Not Available [facility] ([facility]) [address] [facility], [place], [address], 04/19/2025 07:14:38 04/18/20 25 04/19/2025 CBC WITH DIFFE RENTI AL/PL ATELE T monocytes(ab solute) 0.4 x10e3 /uL 0.1-0. 9 Not Available [facility] ([facility]) [address] [facility], [place], [address], 04/19/2025 07:14:38 04/18/20 25 04/19/2025 CBC WITH DIFFE RENTI AL/PL ATELE T eos (absolute) 0.1 x10e3 /uL 0.0-0. 4 Not Available [facility] ([facility]) [address] [place], [address], 04/19/2025 07:14:38 04/18/20 25 04/19/2025 CBC WITH DIFFE RENTI AL/PL ATELE T baso (absolute) 0.0 x10e3 /uL 0.0-0. 2 Not Available [facility] ([facility]) [address] [facility], [place], [address], 04/19/2025 07:14:38 04/18/20 25 04/19/2025 CBC WITH DIFFE RENTI AL/PL ATELE T immature granulocytes 0 % notest ab. Not Available [facility] ([facility]) [address] [facility], [place], [address], 04/19/2025 07:14:38 04/18/20 25 04/19/2025 CBC WITH DIFFE RENTI AL/PL ATELE T immature grans (abs) 0.0 x10e3 /uL 0.0-0. 1 Not Available [facility] ([facility]) [address] [facility], [place], [address], 04/19/2025 07:14:38 08/09/20 elect rocar diogr am No observ ation record ed. [place] In-Office Order Internal Use Only DO Not Attach Compendium DO Not Attach Compendium, Do Not Delete/merge, [id number] 08/09/2024 17:12:19 08/09/2008/09/2024 elect rocar diogr am No observ ation record ed. [place] In-Office Order Internal Use Only DO Not Attach Compendium DO Not Attach Compendium, Do Not Delete/merge, [id number] 08/09/2024 17:11:46 08/23/20 24 08/23/2024 john can cardi olite stres s test (PROC ) No observ ation record ed. [address], [place], [address], 08/25/2024 12:44:32 08/23/20 24 08/23/2024 john can cardi olite stres s test (PROC ) No observ ation record ed. [place] [id number] [facility] [address], [place], [address], 08/25/2024 12:44:32 08/23/20 24 08/23/2024 john can cardi olite stres s test (PROC ) No observ ation record ed. [facility] [address], [place], [address], 08/25/2024 14:21:09 Result Notes None recorded. Problems Name Problem SNOMED Code Status Onset Date Resolution Date Notes Provider Name and Address Organization Details Recorded Time Essential hypertension 19788510 Active 2023 Tunde Mcdaniel [place], [place] [facility] 4 14:46:10 Hyperlipidemia 79911776 Active 2023 Tunde Mcdaniel [place], [place] [facility] 4 14:46:11 Cough 35392282 Active 2023 Tunde Mcdaniel [place] [facility] 4 14:46:12 Anxiety 55241757 Active 2023 Tunde Mcdaniel [place] [facility] 4 14:46:12 Urinary incontinence 990742553 Active 2023 Gisselle Blanc MD Attn: Kristine giordano,[address] [facility], [place], [address], [place] [facility] 4 11:08:04 Impacted cerumen 03078559 Active 2024 Gisselle Blanc MD Attn: Kristine g,[address] [facility], [place], [address], [place] [facility] 5 22:21:37 Problem Notes None recorded. Procedures Surgical History Date Name Laterality Status Provider Name and Address Organization Details Recorded Time Tonsillectomy completed Sommer Cantrell [place] [facility] 02/02/2024 14:01:33 Imaging Results None recorded. Procedure Notes None recorded. Medical Equipment None Reported. Allergies No known drug allergies Medications Name Sig Start Date Stop Date Status Note LastModified by Organization Details LastModified Time atorvasta tin 40 mg tablet TAKE 1 TABLET EVERY DAY 2024 active Not Available Not Available Not Avai lable atorvasta tin 20 mg tablet TAKE 1 TABLET BY MOUTH EVERY DAY 01/01 completed Not Available Not Available Not Available azithromy jossue 250 mg tablet TAKE 2 TABLETS (500 MG) BY ORAL ROUTE ONCE DAILY FOR 1 DAY THEN 1 TABLET (250 MG) BY ORAL ROUTE ONCE DAILY FOR 4 DAYS 04/18 completed Patient complete d this medicati on Not Available Not Available Not Available benzonata te 200 mg capsule TAKE 1 CAPSULE BY MOUTH THREE TIMES DAILY FOR 7 DAYS 04/18 completed Patient complete d this medicati on Not Available Not Available Not Available meloxicam 15 mg tablet TAKE 1 TABLET BY MOUTH DAILY active Not Available Not Available No t Available telmisart an 40 mg tablet TAKE 1 TABLET EVERY DAY 2024 active Not Available Not Available Not Avai lable Cipro 500 mg tablet Take 1 tablet twice a day by oral route for 7 days. 05/02 completed Not Available Not Available Not Available omeprazol e 20 mg capsule,d elayed release TAKE 1 CAPSULE EVERY DAY 2024 active Not Available Not Available Not Avai lable monteluka st 10 mg tablet TAKE 1 TABLET BY MOUTH EVERY DAY active Not Available Not Available No t Available scopolami ne 1 mg over 3 days transderm al patch UNWRAP AND APPLY 1 PATCH TO SKIN 4 HOURS BEFORE CRUISE AND CHANGE EVERY 72 HOURS active Not Available Not Available No t Available escitalop giovanna 10 mg tablet TAKE 1 TABLET EVERY DAY 2024 active Not Available Not Available Not Avai lable solifenac in 10 mg tablet TAKE 1 TABLET BY MOUTH DAILY active Not Available Not Available No t Available BinaxNOW COVID-19 Ag Self Test kit TEST DIRECTED TODAY 08/09 completed Not Available Not Available Not Available Vitals Date Recorded Body height Body mass index (BMI) Body weight Heart rate Oxygen saturation Oxygen saturation in Arterial blood by Pulse oximetry Systolic And Diastolic Provider Name and Address Organization Details Last Updated DateTime 5 160.02 cm 34.3 kg/m2 91127.4 8 g 76 /min 98 % 98 % 130/64 mm[Hg] Keren Crain [place] - [facility] 5 11:06:06 Date Recorded Body height Body mass index (BMI) Body weight Heart rate Body temperature Oxygen saturation Oxygen saturation in Arterial blood by Pulse oximetry Systolic And Diastolic Provider Name and Address Organization Details Last Updated DateTime 4 160.02 cm 34.4 kg/m2 10539.6 4 g 72 /min 98 [degF] 98 % 98 % 126/84 mm[Hg] Sommer Cantrell MA [facility] 4 14:04:58 Date Recorded Body height Body mass index (BMI) Body weight Heart rate Oxygen saturation Oxygen saturation in Arterial blood by Pulse oximetry Systolic And Diastolic Provider Name and Address Organization Details Last Updated DateTime 5 160.02 cm 34.1 kg/m2 19596.8 1 g 80 /min 97 % 97 % 124/68 mm[Hg] Keren Crain MA [facility] 5 14:04:49 Date Recorded Body height Body mass index (BMI) Body weight Heart rate Oxygen saturation Oxygen saturation in Arterial blood by Pulse oximetry Systolic And Diastolic Provider Name and Address Organization Details Last Updated DateTime 4 160.02 cm 34.6 kg/m2 91309.3 1 g 70 /min 98 % 98 % 124/72 mm[Hg] Keren Crain MA [facility] 4 16:03:54 Date Recorded Body height Provider Name an d Address Organization Details Last Updated DateTime 09/20/2024 160.02 [facility] 09/[facility]/2024 11:53:54 Date Recorded Body mass index (BMI) Body weight Heart rate Oxygen saturation Oxygen saturation in Arterial blood by Pulse oximetry Systolic And Diastolic Provider Name and Address Organization Details Last Updated DateTime 4 34 kg/m2 93744.0 9 g 77 /min 97 % 97 % 122/62 mm[Hg] Keren Crain MA [facility] 4 12:01:37 Social History Question Answer Notes LastModified by Organizat ion Details LastModified Time Tobacco Smoking Status Never Smoker Sommer Cantrell MA [facility] 02/02/2024 13:57:51 Do You Have An Advance Directive? Yes Information n ot available 08/09/2024 Are You Blind Or Do You Have Difficulty Seeing? No Information n ot available 02/02/2024 What Is Your Level Of Caffeine Consumption? Occasional Information not available 08/09/2024 In The 14 Days Before Symptom Onset, Have You Had Close Contact With A Laboratory-confirm ed COVID-19 While That Case Was Ill? No Information n ot available 08/09/2024 In The 14 Days Before Symptom Onset, Have You Had Close Contact With A Person Who Is Under Investigation For COVID-19 While That Person Was Ill? No Information not available 08/09/2024 Have You Been To An Area Known To Be High Risk For COVID-19? No Information not available 08/09/2024 Are You Deaf Or Do You Have Serious Difficulty Hearing? No Information not available 02/02/2024 What Type Of Diet Are You Following? REGULAR Information n ot available 08/09/2024 Are There Any Guns Present In Your Home? No Information not available 08/09/2024 What Was The Date Of Your Most Recent Tobacco Screening? 04/18/2025 Information not available 04/18/2025 What Is Your Relationship Status? Information not available 02/02/2024 Do You Use Your Seat Belt Or Car Seat Routinely? Yes Information not available 08/09/2024 Do You Have Smoke And Carbon Monoxide Detectors In Your Home? Yes Information not available 08/09/2024 Do You Use Sunscreen Routinely? Yes Information not available 08/09/2024 Has Tobacco Cessation Counseling Been Provided? No Information not available 08/09/2024 Sex: Female Functional Status Question Answer Note LastModified by Organizat ion Details LastModified Time Do you use any illicit or recreational drugs? No Information not available 08/09/2024 Do you or have you ever used any other forms of tobacco or nicotine? No Information not available 08/09/2024 What is your level of alcohol consumption? Occasional Information not available 02/02/2024 Are you currently employed? No Information not available 08/09/2024 Are you able to care for yourself independently? Yes Information not available 02/02/2024 What is your exercise level? None Information not available 08/09/2024 Mental Status Question Answer Note LastModified by Organization D etails LastModified Time Do you feel stressed (tense, restless, nervous, or anxious, or unable to sleep at night)? [id number] Information not available 08/09/2024 Family History Relationship Description Onset Age of this Age Resolved Age Notes LastModified by Organization Details LastModified Time Mother Dementia [email or web address] Not availabl e 02/02/2024 14:02:14 Mother Diabetes mellitus [email or web address] Not available 2023 14:02:22 Mother Hypertensive disorder apaytonma Not available 2023 14:02:35 Mother Hypercholest erolemia apaytonma Not available 2023 14:02:41 Brother Diabetes mellitus apaytonma Not available 2023 14:02:22 Brother Hypertensive disorder apaytonma Not available 2023 14:02:35 Father Hypertensive disorder apaytonma Not available 2023 14:02:35 Father Hypercholest erolemia apaytonma Not available 2023 14:02:41 Medical History Condition Response Coronary Artery Disease N Other N Atrial Fibrillation N High Blood Pressure Y Kidney or Bladder Problems N Thyroid Problems N GI Problems N Depression N COPD N Blood Clots N Skin Problems N Anemia N Heart Attack (PR) N Anxiety Disorder N Diabetes N Muscle, Joint, or Bone Problems N Seizures/Epilepsy N Acid Reflux (GERD) N Cancer N Stroke N Asthma N Allergies N High Cholesterol Y Hepatitis N Liver Disease N Headaches N Heart Failure N Osteoporosis N Gynecological History Statement/Question Response If Post Menopausal, Age at Menopause 50 Obstetrics History GPAL:G 2 P 2 0 0 2 Type Value Full Term 2 Living 2 Total 2 Immunizations Vaccine Type Date Status Note Provider Nam e and Address Organization Details Recorded Time Influenza, high-dose, quadrivalent, PF 2 completed SAGE Ortiz null, [place] [facility] 09/20/2024 11:54:20 Influenza, high-dose, quadrivalent, PF 0 completed SAGE [place] [facility] 09/20/2024 11:54:20 Influenza, high-dose, quadrivalent, PF 9 completed SAGE [place] [facility] 09/20/2024 11:54:20 Influenza, adjuvanted, quadrivalent, PF 3 completed Hilda Mccracken RMA [place] [facility] 09/20/2024 11:54:20 Influenza, adjuvanted, quadrivalent, PF 1 completed Hilda [place]ccrack[place] [facility] 09/20/2024 11:54:20 COVID-19, mRNA, LNP-S, PF, 100 mcg/0.5mL dose or 50 mcg/0.25mL dose 1 completed Hilda [place]ccrack[place] [facility] 09/20/2024 11:54:20 COVID-19, mRNA, LNP-S, PF, 100 mcg/0.5mL dose or 50 mcg/0.25mL dose 1 completed Hilda [place]ccrack[place] [facility] 09/20/2024 11:54:20 COVID-19, mRNA, LNP-S, PF, 100 mcg/0.5mL dose or 50 mcg/0.25mL dose 2 completed Hilda Mccrack[place] [facility] 09/20/2024 11:54:20 COVID-19, mRNA, LNP-S, PF, 100 mcg/0.5mL dose or 50 mcg/0.25mL dose 1 completed Hilda Mccrack[place] [facility] 09/20/2024 11:54:20 COVID-19, mRNA, LNP-S, bivalent, PF, 50 mcg/0.5 mL or 25mcg/0.25 mL dose 2 completed Hilda [place]ccrack[place] [facility] 09/20/2024 11:54:20 COVID-19, mRNA, LNP-S, PF, 50 mcg/0.5 mL 3 completed Hilda [place]ccrack[place] [facility] 09/20/2024 11:54:20 Influenza, high-dose, trivalent, PF 8 completed Hilda [place]ccrack[place] [facility] 09/20/2024 11:54:20 Influenza, split virus, trivalent, preservative 4 completed Hilda [place]ccrack[place] [facility] 09/20/2024 11:54:20 Influenza, split virus, quadrivalent, PF 6 completed Hilda [place]ccrack[place] [facility] 09/20/2024 11:54:20 Influenza, split virus, quadrivalent, PF 6 completed Hilda [place]ccrack[place] [facility] 09/20/2024 11:54:20 COVID-19, mRNA, LNP-S, PF, 50 mcg/0.5 mL 4 completed Keren C[place] [facility] 09/20/2024 12:02:31 Influenza, high-dose, trivalent, PF 4 completed Keren C[place] [facility] 09/20/2024 12:02:31 Pneumococcal conjugate PCV20, polysaccharide [id number] conjugate, adjuvant, PF 4 completed Not Available [facility] 04/18/2025 13:53:14 RSV, bivalent, protein subunit RSVpreF, diluent reconstituted, 0.5 mL, PF 4 completed Not Available [facility] 04/18/2025 13:53:14 zoster recombinant 5 completed Not Available [facility] 04/18/2025 13:53:14 zoster recombinant 5 completed Not Available [facility] 04/18/2025 13:53:14 Tdap 5 completed Gisselle Blanc MD Attn: Accounting[address] [place], [address], [place] [facility] 02/10/2025 22:20:22 Past Encounters Encounter ID Performer Location Encounter Start Date Encounter Closed Date Diagnosis/Indication Diagnosis SNOMED-CT Code Diagnosis ICD10 Code Diagnosis IMO Codes Diagnosis Note [id number] ARABELLA Molina-LINDA renter[facility] [place] [address] 07/09/2020 13:28:49 07/15/2020 07:43:51 Viral screening 641790103 Z11.59 Viral syndrome 118604163 B34.9 Exposure t o SARS-CoV-2 583933137 Z20.518 [id number] MD Demetrio Garcias (Adult Med) [address] [place] [phone] 02/02/2024 13:46:26 02/02/2024 14:48:51 Essential hypertension 08964177 I10 Hyperlipidemia 16854305 E78.5 Cough 50974081 R05.9 Anxiety 02982908 F41.9 Motion sickness 65166166 T75.3XXA [id number] MD Demetrio Garcias (Adult Med) [address] [place] [id number] 08/09/2024 15:46:56 08/09/2024 17:07:16 Essential hypertension 05171744 I10 Hyperlipidemia 21839426 E78.5 Anxiety 07604946 F41.9 Urinary incontinence 165 737909 R32 Chest pain 96132884 R07. 9 [id number] MD Demetrio Garcias (Adult Med) [address] [place] [phone] 09/20/2024 11:51:34 09/20/2024 12:32:08 Essential hypertension 85731652 I10 Hyperlipidemia 67974189 E78.5 Anxiety 37669616 F41.9 Urinary incontinence 165 607968 R32 [id number] MD Demetrio Garcias (Adult Med) [address] [place] [phone] 01/30/2025 10:49:59 01/30/2025 11:35:55 Body mass index 30+ - obesity 051392688 Z68.34 Obesity 835220161 E66.9 Administra tion of diphtheria, pertussis, and tetanus vaccine 662587938 Z23 Impacted cerumen 2241774 6 H61.22 [id number] MD Demetrio Garcias (Adult Med) [address] [place] [phone] 04/18/2025 13:52:07 04/18/2025 14:48:57 Obese class I 9161410573 33964 E66.811 0558979563 BMI 34.1 Essential hypertension 95858083 I10 Hyperlipidemia 70671268 E78.5 Dysuria 53512099 R30.0 37450 Urinary incontinence 165 418653 R32 Health Concerns Section Related Observation LastModified by Organization Detai ls LastModified Time None Recorded Concern Status LastModified by Organization Details LastModified Time None Recorded Advance Directives Directive Y: Payers Insurance Date Sequence Insurance Name Policy Number Policy Andrade Covered Member ID Andrade Member ID Guarantor Name 04/16/2025 2 [employer] (MEDICARE SUPPLEMENT) Martha Mccurdy [id number] aMrtha Mccurdy 04/15/2025 [place] [employer] [place] [facility] Martha Mccurdy [id number] Martha Mccurdy 04/15/2025 [place] [facility] Martha Mccurdy [id number] Martha Mccurdy 04/15/2025 1 [place] Martha Mccurdy [id number] Martha Mccurdy 03/25/2024 2 [place] [id number] D Jose Mccurdy [id number] Martha Mccurdy Notes Date Note Type Note Provider Name and Address Organization Details Recorded Time 02/02/2024 text/html 68-year-old with hypertension dyslipidemia chronic rhinitis it causes her little bit of cough also anxiety comes in for establishment of care overall she has been doing fine she would like some scopolamine patches for motion sickness she is getting ready to go on a cruise Gisselle Blanc MD Attn: Accounting[address] [facility], [place], [address], [place] 03/02/2024 08:13:43 08/09/2024 text/html she has had some intermittent nausea and some heartburn type symptomatology sometimes responsive to Tums. Has been going on for a couple of months it is not progressive she has not had weight loss there has not been any hematemesis and there has not been any melena. Does not seem to be precipitated by anything. I lipidemia does try to follow a low-fat diet the best that she can not. Anxiety stable on current meds no SI or HI. Urinary incontinence seems to be doing fine on sulfa penicillin. No side effects from any medications. Hypertension no headache or dizziness Gisselle Blanc MD Attn: Accounting,[address] [facility], [place], [address], [facility] - [facility] 08/12/2024 11:09:54 09/20/2024 text/html heartburn symptoms gone on PPI stress test negative. Hypertension controlled asymptomatic hyperlipidemia atorvastatin we went up to 40 mg she is tolerating that. Anxiety stable Gisselle Blanc MD Attn: Accounting,[address] [facility], [place], [address], [facility] - [facility] 09/20/2024 21:29:39 01/30/2025 text/html Left ear hurts and she can not hear out of it Gisselle Blanc MD Attn: Accounting[address] [facility], [place], [address], [facility] - [facility] 02/10/2025 22:22:23 04/18/2025 text/html Incontinence appear to be stable occasionally some dysuria. Hypertension no chest pain shortness breath or palpitations hyperlipidemia she does try to follow a low-fat diet and stay active. Osteoarthritis has been stable anxiety doing fine no SI or HI and there has not been any side effects from medications Kae Mendenhall MA [facility], [place] - [facility] 04/23/2025 10:48:55 OBGyn Episode No OBEpisode recorded.
== END 2025-09-05 12:33 | disposition home or self-care (01) ==
PROVIDERS: PCP Internal Medicine; Visit Provider Orthopaedic Surgery
DX: E78.5 Hyperlipidemia, unspecified (principal); I10 Essential (primary) hypertension; R94.31 Abnormal electrocardiogram [ECG] [EKG]
CPT/HCPCS: 93005

== ENCOUNTER 2025-09-17 01:55 | Day surgery (SDC) | payer MEDICARE, OTHER, SELFPAY ==
[2025-09-03 11:45] VITALS: BMI 33.6
--- NOTE | 2025-09-03 11:56 | PC.NURSE ---
Addendum entered by Ramonita Fiore RN 09/03/25 12:00: NO NSAIDS/ASA for [address] Black VALDEZ Original Note: [facility] has started construction of its new state of the art ER which will open Spring 2026. With this, we anticipate parking may be a challenge for some our surgical patients and families. Parking spaces are limited but are available for all Surgical, obstetrics, and ER patients sharing this lot. If you arrive and find you are having a hard time finding a parking space, please note that we understand the challenges, please drive around the hospital and park near Hospital Entrance 1. When you enter this entrance, you can ask a volunteer to direct or take you back to the surgical waiting area to check in. We appreciate everyone?s understanding of these expected challenges while we build for your future. Report to the Outpatient Waiting Room, entrance under the green pavilion located off [facility], at time __0800am on date ___09/17/25____. Planned Procedure Time: _1000am .? Time changes happen often and if your time is changed the preop area will call you the afternoon before. - You and your visitor will be asked to self-screen and do not enter if you have any COVID symptoms. Please call surgeon if you need to reschedule. - A mask is optional within the hospital at this time. Patients may have clear liquids (water, carbonated beverages, clear teas, apple juice) until 3 hours prior to surgery with a maximum of 20 ounces. - No food from midnight until time of surgery and no smoking, or chewing tobacco (or any form of nicotine). No chewing gum, candy or mints. (0700am) Take only the following medications with a SIP of water on the morning of surgery: Escitalopram, Tylenol if needed DO NOT STOP ANY OF YOUR OTHER PRESCRIPTION MEDICATIONS PRIOR TO SURGERY EXCEPT THE FOLLOWING Hold all vitamins and supplements for 3 days per anesthesiologist. Date of last dose is 09/13/25 Medications to discontinue per physician ___NO ASPIRIN/MOTRIN/NSAID for 5 days prior Date to take last dose 09/11/25 Please no make-up, nail german, hairspray, perfume, deodorant, or body powder the day of surgery.? No jewelry (including any body piercings) or valuables the day of surgery, leave them at home.? Please take a shower or bath the night before, or the morning of, surgery with an antibacterial soap.? Wear comfortable, loose fitting clothing.? - Jewelry must be removed prior to entering the operating room.? Rings and piercings that are not removed may be cut off. - The hospital will not accept responsibility for valuables.? - Please leave all valuables, including medications, at home the day of surgery. If you are going home after surgery, a licensed frontload driver must drive you home.? - NO public transportation without another adult if you receive anesthesia. - We recommend that an adult stay with you for 24 hours following discharge. - We also recommend that you do not drive, make important decision, drink alcoholic beverages, or take any drugs that were not prescribed by your health care provider for at least 24 hours after your discharge time. Follow any additional instructions given to you from your surgeon. Telephone instructions given to __Patient and asked if any additional questions and then verbalized understanding. Patient advised to call surgeon office or pre surgery nurse liaison [phone] if any additional questions.
--- NOTE | 2025-09-13 08:28 | PM.IMHP ---
H&P: HPI History of Present Illness Date/Time: 09/13/25 08:28 Chief Complaint: Patient is knee pain right. She has mechanical catching and locking. She has an MRI scan that shows a meniscal tear. She has failed conservative treatment. She would like to consider surgical intervention consisting of arthroscopy and partial meniscectomy. Review of Systems Musculoskeletal: Musculoskeletal: Reports arthralgias, Reports joint swelling and Reports stiffness PMFSH Past Medical History Medical History IBS (irritable bowel syndrome) Hyperlipidemia Hypertension Surgical History Surgical History History of shoulder surgery History of bladder repair surgery History of shoulder surgery Family History Family History Father No problems noted. Mother Diabetes mellitus Sibling Diabetes mellitus Father Cerebrovascular accident Mother Cerebrovascular accident Social History Social History (Updated 08/23/25 @ 11:28 by Sydnie Melo CMA) Smoking status: Never smoker Second hand tobacco smoke exposure: No Alcohol intake: current Drinks per week: 2 Alcohol use details: Occasional Substance use: never Substance use type: does not use Lack of Transportation: No Lack of Food: Never True Current Housing: I Have Housing Concerned About Future Housing: No Difficulty Paying Gas/Electric Bills: No Difficulty Paying for Meds: No Currently Unemployed: No Education: Bachelor's Degree Difficulty w/ Childcare or Family Care: No Living arrangements: with family Occupation/Education: retired Additional occupation/education comments: Teacher [employer] Gender identity (if verbalized by the patient): Female Spiritual care concerns: No Meds Home Medications and Allergies Home Medications ?Medication ?Instructions ?Recorded ?Confirmed ?Type atorvastatin 40 mg tablet (Lipitor) 40 mg PO DAILY 05/02/25 09/03/25 History escitalopram oxalate 10 mg tablet 10 mg PO DAILY 05/02/25 09/03/25 History omeprazole 20 mg capsule,delayed 20 mg PO DAILY 05/02/25 09/03/25 History release solifenacin 10 mg tablet 10 mg PO DAILY 05/02/25 09/03/25 History telmisartan 40 mg tablet 40 mg PO DAILY 05/02/25 09/03/25 History Allergies Allergy/AdvReac Type Severity Reaction Status Date / Time No Known Allergies Allergy Verified 09/03/25 11:43 Exam Narrative: On exam she is tender medially. She has catching locking and pain in her knee. Neurologically she is intact. She walks with a mild limp. He has pain to palpation manipulation. Elbow X-Ray 08/21/24 Hip/Pelvis X-Ray 05/31/24 Knee X-Ray 05/02/25 Orthopedics Result Report 05/02/25 Assessment and Plan Assessment and plan (1) Acute medial meniscus tear of right knee: Code(s): S83.241A - Other tear of medial meniscus, current injury, right knee, initial encounter Status: Acute Assessment and Plan: Patient has a medial meniscal tear of the right knee. She has mechanical symptoms of catching and locking and pain. She has failed conservative treatment like to consider surgical intervention. I have discussed this with her including the risks, benefits, limitations, and alternatives in detail. Will proceed per her request, with arthroscopy of the right knee, partial medial meniscectomy, proceed as indicated.
[2025-09-17] VITALS (8 sets, daily range): BP systolic 86–148; BP diastolic 47–77; PULSE 66–79; RESP 12–20; TEMP 36.1–36.6; O2SAT 97–100; BMI 34.1
[2025-09-17] MEDS: KETOROLAC 15 MG/ML VIAL (*BKC) IV PUSH (06:40)
[2025-09-17] MEDS: LACTATED RINGERS 1,000 ML 30 ML IV CONT (06:40)
--- NOTE | 2025-09-17 06:41 | WPDHPUPDATE1 ---
History and Physical Update Update Date/Time: 09/17/25 06:41 History and Physical has been reviewed, including an updated exam of the patient. There are NO changes in the patient's condition. Risks, benefits, and alternatives have been discussed and questions answered. Patient agrees to proceed with procedure. Will proceed with Arthroscopy, Partial Meniscectomy, Proceed as Indicated. She knows this will not change any arthritis.
[2025-09-17] MEDS: ACETAMINOPHEN 500 MG TABLET 1000 MG PO (06:46)
--- NOTE | 2025-09-17 07:14 | WPDANESEPPF ---
Anes - Initial Pre Proc Eval Procedure: Operation Date: 09/17/25 07:30 Proposed Procedures p Right Knee Arthroscopy, Partial Meniscectomy, Proceed As Indicated - Terrance Cleaning MD Date/Time: 09/17/25 07:14 Surgeon: Terrance Cleaning MD Pre Op Diagnosis: rt med meniscal tear Patient Data Age: 70 Gender: F Height: 1.6 m Weight: 87.4 kg Last Vital Signs Temp 98 F 09/17/25 06:42 Pulse 73 09/17/25 06:42 BP 148/77 H 09/17/25 06:42 Pulse Ox 97 09/17/25 06:42 O2 Del Method Room Air 09/17/25 06:42 Allergies Allergy/AdvReac Type Severity Reaction Status Date / Time No Known Allergies Allergy Verified 09/03/25 11:43 Home Medications ?Medication ?Instructions ?Recorded ?Confirmed ?Type atorvastatin 40 mg tablet (Lipitor) 40 mg PO DAILY 05/02/25 09/03/25 History escitalopram oxalate 10 mg tablet 10 mg PO DAILY 05/02/25 09/17/25 History omeprazole 20 mg capsule,delayed 20 mg PO DAILY 05/02/25 09/03/25 History release solifenacin 10 mg tablet 10 mg PO DAILY 05/02/25 09/03/25 History telmisartan 40 mg tablet 40 mg PO DAILY 05/02/25 09/03/25 History Patient hx anesthesia problems: none Family hx anesthesia problems: none Results Review: All pre-operative results and documents have been reviewed as part of the pre-operative evaluation. [facility] Past Medical History Medical History IBS (irritable bowel syndrome) Hyperlipidemia Hypertension Surgical History Surgical History History of shoulder surgery History of bladder repair surgery History of shoulder surgery Family History Family History Father No problems noted. Mother Diabetes mellitus Sibling Diabetes mellitus Father Cerebrovascular accident Mother Cerebrovascular accident Social History Social History Smoking status: Never smoker Second hand tobacco smoke exposure: No Alcohol intake: current Drinks per week: 2 Alcohol use details: Occasional Substance use: never Substance use type: does not use Lack of Transportation: No Lack of Food: Never True Current Housing: I Have Housing Concerned About Future Housing: No Difficulty Paying Gas/Electric Bills: No Difficulty Paying for Meds: No Currently Unemployed: No Education: Bachelor's Degree Difficulty w/ Childcare or Family Care: No Living arrangements: with family Occupation/Education: retired 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 HTN, hyperlipidemia, pt had stress test 08/2024 w nml LVEF, no ischemia. Informed Consent: The patient's anesthetic plan and its attendant risks and benefits were discussed with the patient/family/POA. Questions were solicited and answers provided to the satisfaction of the patient/family/POA.
[2025-09-17] MEDS: ceFAZolin 2 GM in SODIUM CHLORIDE 0.9% IV 50 ML 100 ML IVPB (07:38)
[2025-09-17] MEDS: LIDO 1%/EPINEPHRINE 1:100,000 50 ML VIAL (07:39)
--- NOTE | 2025-09-17 08:01 | W.PM.PROC2 ---
Procedure Note - Detailed Date of Procedure 09/17/25 Pre-op Diagnosis RIGHT Medial Meniscal Tear Post-op Diagnosis Same Procedure Performed RIGHT knee arthroscopy with partial meniscectomy Surgeon Terrance Cleaning MD Anesthesia General Indications Pain, Locking and Catching Description of Procedure Patient brought to operating room # 7. An anesthetic was administered. The knee was sterilely prepped and draped in the usual manner. Standard portals were used. Superior medial portal was used for the outflow cannula, inferior lateral portal was used for the scope, inferior medial portal was used for the instruments. Arthroscopy was performed, the patellar femoral joint degenerative changes. The medial compartment showed a complex tear, posteriorly. There was moderate grade 3 changes in the medial compartment. The lateral compartment showed fraying. The ACL was intact. Using baskets and saqib the meniscal tear was trimmed back to a stable base so the nothing further could be pulled into the joint. Any loose or delaminated fragments were gently trimmed to a stable base. The plica was debrided as well. There were Grade 3 changes on the medial femoral condyle. At this point the instruments were withdrawn, sutures placed and patient left the operating room in satisfactory condition. Estimated Blood Loss 20 Drains No Packing No Pathology None sent Complications No immediate complications Condition Stable Disposition PACU [facility] Billing Surgery - Charge Forward: Surgery Billing ([id number] MMT Right)
[2025-09-17] MEDS: fentaNYL CITRATE INJ (*CRX) 100 MCG/2 ML VIAL 25 MCG IV PUSH (08:39)
[2025-09-17] MEDS: oxyCODONE HCL (*CRX) 5 MG TAB IR PO (09:28)
== END 2025-09-17 10:03 | disposition home or self-care (01) ==
PROVIDERS: PCP Internal Medicine; Visit Provider Orthopaedic Surgery
PROC: (CPT 29870; principal; 2025-09-17 07:30)
DX: M23.331 Other meniscus derangements, other medial meniscus, right knee (principal); E66.9 Obesity, unspecified; Z68.34 Body mass index [BMI] 34.0-34.9, adult
CPT/HCPCS: 29881; J0690; A9270; J1100; J1885; J2003; J2004; J2250; J2405; J2704; J3010; J7120

== ENCOUNTER 2025-10-09 12:41 | Outpatient (CLI) | payer MEDICARE, OTHER, SELFPAY ==
--- NOTE | ~2025-10-09 | MM_ITS ---
EXAMINATION: MM screening virgen BI w liv HISTORY: Screening. TECHNIQUE: Craniocaudal and mediolateral oblique 3-D tomosynthesis images were obtained and synthetic 2-D images were generated. CAD analysis was submitted and interpreted. COMPARISON: 2023, 2021, and 2020 BREAST PARENCHYMAL COMPOSITION: Not Dense: There are scattered areas of fibroglandular FINDINGS: No suspicious masses are seen. There are no suspicious calcifications. No unexplained architectural distortion is seen. There are no skin or nipple abnormalities identified. There is no adenopathy seen on the images submitted. IMPRESSION: No mammographic evidence to suggest malignancy is seen. The patient may return to screening mammography as per ACR guidelines. BI-RADS 1 - Negative. Reviewed, dictated and finalized at location [facility]
== END 2025-10-09 12:42 | disposition home or self-care (01) ==
PROVIDERS: PCP Internal Medicine
DX: Z12.31 Encounter for screening mammogram for malignant neoplasm of breast (principal)
CPT/HCPCS: 77063; 77067